=== PATIENT | female | born 1990 | race Caucasian/White ===

== ENCOUNTER 2018-03-13 01:11 | Day surgery (SDC) | payer BC ==
[2018-03-13] MEDS ORDERED: ACETAMINOPHEN 1000 MG/100 ML VIAL (NON FORMULARY) IVPB ONE (01:39)
[2018-03-13] MEDS ORDERED: SODIUM CHLORIDE 0.9% 1000 ML INFUS.BAG IV ONE ×2 (01:39→04:22)
[2018-03-13] MEDS ORDERED: morphine CARPU-JECT 4 MG/1 ML DISP.SYRIN IVPUSH ONE ×2 (01:39→04:22)
--- NOTE | 2018-03-13 01:39 | PDOC ---
History of Present Illness - General Chief Complaint: Pain, Acute Stated Complaint: ABD PAIN, N/V Time Seen by Provider: 03/13/18 01:32 - History of Present Illness Initial Comments: 03/13/18 02:34 27 years old with no significant past medical history presents emergency department with progressively worsening epigastric abdominal discomfort starting at approximately 7 PM associated with 4 episodes of vomiting. No diarrhea. No fever. Pain is severe in intensity persistent concent nonradiating with no exacerbating or alleviating factors No history of similar. No previous abdominal surgeries. Past History - Past Medical History Allergies/Adverse Reactions: Allergies Allergy/AdvReac Type Severity Reaction Status Date / Time No Known Allergies Allergy Unverified 03/13/18 01:45 Home Medications: Ambulatory Orders NK [No Known Home Medication] 03/13/18 COPD: No - Suicide/Smoking/Psychosocial Hx Smoking History: Never smoked Review of Systems - Review of Systems Comments:: 03/13/18 02:36\ ROS: A complete review of 10 out of 10 review of systems is taken and is negative apart from what is previously mentioned below and in the HPI. *Physical Exam - Vital Signs Last Vital Signs Temp Pulse Resp BP Pulse Ox 98.4 F 65 18 124/88 100 03/13/18 01:12 03/13/18 01:12 03/13/18 01:12 03/13/18 01:12 03/13/18 01:12 - Physical Exam Comments: 03/13/18 02:35 Vitals: Triage Vital signs reviewed General Appearance: no acute distress, well nourished well developed, Head: Atraumatic, Neck: Supple;No Nucal rigidity Chest Wall: Nontender Cardiac: Regular rate and rhythym, no murmurs, no rubs, no gallops, Lungs: Clear to auscultation bilateral, good air movement bilaterally, Abdomen: Soft, non distended, normal bowel sounds, right lower quadrant tenderness to palpation Genitourinary: No adnexal tenderness to palpation, no CMT (perfomed with applications sales consultant tech jerrod at bedside) Skin: Warm and dry, no rashes or lesions, no rash, no petechiae Psych: normal mood, normal affect Moderate Sedation - Procedure Monitoring Vital Signs: Procedure Monitoring Vital Signs Temperature 98.4 F 03/13/18 01:12 Pulse Rate 65 03/13/18 01:12 Respiratory Rate 18 03/13/18 01:12 Blood Pressure 124/88 03/13/18 01:12 O2 Sat by Pulse Oximetry (%) 100 03/13/18 01:12 ED Treatment Course - LABORATORY CBC & Chemistry Diagram: 03/13/18 02:10 03/13/18 02:10 Medical Decision Making - Medical Decision Making 03/13/18 04:59 27 years old past medical history presents with one-day history of epigastric and now right lower quadrant pain RLQ ttp on exam No significant adnexal tenderness on pelvic exam we'll treat with pain medications IV fluids and antiemetics labs and CT abdomen pelvis CT + for acute appendicitis Patient given Zosyn. Case discussed with surgery at 4:50 AM Will admit to hospital for appendectomy today *DC/Admit/Observation/Transfer Diagnosis at time of Disposition: Appendicitis Qualifiers: Appendicitis type: acute appendicitis Acute appendicitis type: unspecified acute appendicitis type Qualified Code(s): K35.80 - Unspecified acute appendicitis - Discharge Dispostion Condition at time of disposition: Stable Decision to Admit order: Yes - Referrals - Patient Instructions - Post Discharge Activity
[2018-03-13] MEDS ORDERED: ONDANSETRON 4 MG/2 ML VIAL IVPUSH ONE (01:51)
[2018-03-13 02:39] LABS: BASO % 0.3 % (0-2.0); EOS % 0.3 % (0-4.5); HEMATOCRIT 42.4 % (32.4-45.2); HEMOGLOBIN 14.1 GM/dL (10.7-15.3); LYMPH % 12.1 % (8-40); MCH 28.4 pg (25.7-33.7); MCHC 33.3 g/dl (32.0-36.0); MEAN CELL VOLUME 85.3 fl (80-96); NEUT % 82.3 % (42.8-82.8); PLATELET COUNT 201 K/MM3 (134-434); RBC 4.97 M/mm3 (3.60-5.2); RDW 12.1 % (11.6-15.6)
[2018-03-13 02:50] LABS: URINE APPEARANCE CLEAR; URINE BILIRUBIN NEGATIVE (<2.0 mg/dL); URINE COLOR YELLOW; URINE GLUCOSE (UA) NEGATIVE (NEGATIVE); URINE KETONE 1+ (NEGATIVE); URINE LEUK ESTERASE NEGATIVE (NEGATIVE); URINE NITRITE NEGATIVE (NEGATIVE); URINE PROTEIN NEGATIVE (NEGATIVE); URINE UROBILINOGEN NEGATIVE mg/dL (0.2-1.0)
[2018-03-13 02:52] LABS: HCG,QUALITATIVE URINE Negative
[2018-03-13 02:56] LABS: PROTHROMBIN TIME (PATIENT) 11.8 SEC (9.7-13.0)
[2018-03-13 03:25] LABS: ALBUMIN 4.2 g/dl (3.4-5.0); ALK PHOS 52 U/L (45-117); ANION GAP 14 MMOL/L (8-16); BILIRUBIN,TOTAL 0.9 mg/dL (0.2-1); BLOOD UREA NITROGEN 22 mg/dL (7-18); CALCIUM 9.6 mg/dL (8.5-10.1); CHLORIDE 102 mmol/L (98-107); CO2 23 mmol/L (21-32); GLUCOSE,RANDOM 106 mg/dL (74-106); POTASSIUM 3.5 mmol/L (3.5-5.1); SGOT/AST 19 U/L (15-37); SGPT/ALT 29 U/L (13-61); SODIUM 138 mmol/L (136-145); TOT PROT 7.3 g/dl (6.4-8.2)
[2018-03-13] MEDS ORDERED: PIPERACILLIN/TAZOB 3.375 GM 3.375 GM in DEXTROSE 5%-WATER - 50 ML IVPB ONE ×3 (04:19→18:00)
--- NOTE | 2018-03-13 05:03 | HP ---
Admitting History and Physical - Admission Chief Complaint: abdominal pain History of Present Illness: 27 yo no significant PMH presents to the emergency department with progressively worsening epigastric abdominal discomfort starting at approximately 7 PM associated with 4 episodes of vomiting. No diarrhea. No fever. Pain is severe in intensity persistent concent nonradiating with no exacerbating or alleviating factors. No history of similar. No previous abdominal surgeries. CT scan shows dilated appendix. we were called to assess. History Source: Patient, Medical Record Limitations to Obtaining History: No Limitations - Smoking History Smoking history: Never smoked Home Medications - Allergies Allergies/Adverse Reactions: Allergies Allergy/AdvReac Type Severity Reaction Status Date / Time No Known Allergies Allergy Unverified 03/13/18 01:45 - Home Medications Home Medications: Ambulatory Orders NK [No Known Home Medication] 03/13/18 Review of Systems - Review of Systems Constitutional: denies: Chills, Fever Eyes: denies: Blind Spots, Recent Change in Vision HENT: denies: Difficult Swallowing, Ocular Prosthesis Neck: denies: Pain on Movement, Swollen Glands Cardiovascular: denies: Chest Pain, Palpitations Respiratory: denies: Cough, SOB Gastrointestinal: reports: Abdominal Pain. denies: Constipation, Diarrhea Genitourinary: denies: Burning, Discharge Breasts: reports: No Symptoms Reported. denies: Pain Integumentary: denies: Blister, Lesions, Lump Neurological: denies: Syncope, Tremors, Weakness Endocrine: denies: Unexplained Weight Gain, Unexplained Weight Loss Hematology/Lymphatic: denies: Easily Bruised, Excessive Bleeding Psychiatric: denies: Anxiety, Depression Physical Examination Vital Signs: Vital Signs Temperature 98.6 F 03/13/18 04:40 Pulse Rate 70 03/13/18 04:40 Respiratory Rate 16 03/13/18 04:40 Blood Pressure 97/57 L 03/13/18 04:40 O2 Sat by Pulse Oximetry (%) 97 03/13/18 04:40 Constitutional: Yes: Well Nourished, No Distress, Calm Eyes: Yes: Conjunctiva Clear, EOM Intact HENT: Yes: Atraumatic, Normocephalic Neck: Yes: Supple, Trachea Midline Cardiovascular: Yes: Regular Rate and Rhythm, S1, S2 Respiratory: Yes: Regular, CTA Bilaterally Gastrointestinal: Yes: Normal Bowel Sounds, Soft ...Rectal Exam: Yes: Deferred Renal/: No: CVA Tenderness - Left, CVA Tenderness - Right Musculoskeletal: No: Muscle Pain, Muscle Weakness Extremities: No: Cool, Cyanosis Edema: No Peripheral Pulses WNL: Yes Peripheral Pulses: Left Radial: 2+, Right Radial: 2+, Left Doralis Pedis: 2+, Right Dorsalis Pedis: 2+, Left Femoral: 2+, Right Femoral: 2+ Integumentary: No: Incision, Jaundice Neurological: Yes: Alert, Oriented Psychiatric: Yes: Alert, Oriented Labs: CBC, BMP 03/13/18 02:10 03/13/18 02:10 Imaging - Results Cat Scan: Report Reviewed, Image Reviewed (inclamed appendix RLQ) Problem List - Problems (1) Acute appendicitis with localized peritonitis Assessment/Plan: 27yo female with appendicitis with localized peritonitis NPO and IVF hydration IV antibiotics OR for Lap Appendectomy Discussed with patient risks, benefits and alternatives of laparoscopic possible open appendectomy, including but not limited to bleeding, infection, injury to adjacent structures, leak or injury, intraabdominal abscess, incisional hernia, need for further procedures, ; alternatives include antibiotics, delayed or no surgery - risks of this include failure of nonoperative therapy, perforation, sepsis, recurrence, . Patient desires to proceed with operation - will take to OR for above. Informed consent signed for same. Code(s): K35.30 - ACUTE APPENDICITIS WITH LOC PERITONITIS, W/O PERF OR GANGR Qualifiers: Appendicitis gangrene presence: without gangrene Appendicitis perforation presence: without perforation Appendicitis abscess presence: without abscess Qualified Code(s): K35.30 - Acute appendicitis with localized peritonitis, without perforation or gangrene (2) Abdominal pain in female Code(s): R10.9 - UNSPECIFIED ABDOMINAL PAIN (3) Leukocytosis Code(s): D72.829 - ELEVATED WHITE BLOOD CELL COUNT, UNSPECIFIED Qualifiers: Leukocytosis type: bandemia Qualified Code(s): D72.825 - Bandemia (4) Appendicitis Code(s): K37 - UNSPECIFIED APPENDICITIS Qualifiers: Appendicitis type: acute appendicitis Acute appendicitis type: unspecified acute appendicitis type Qualified Code(s): K35.80 - Unspecified acute appendicitis (5) Dehydration Code(s): E86.0 - DEHYDRATION
[2018-03-13 05:52] VITALS: BMI 24.7
[2018-03-13] MEDS ORDERED: morphine CARPU-JECT 4 MG/1 ML DISP.SYRIN IVPUSH PRN (05:56)
[2018-03-13] MEDS ORDERED: ONDANSETRON 4 MG/2 ML VIAL IVPUSH PRN ×3 (05:56→11:49)
[2018-03-13] MEDS ORDERED: LACTATED RINGERS SOLUTION 1,000 ML IV SCH (05:56)
[2018-03-13] MEDS ORDERED: morphine SULFATE 4 MG/ML VIAL IVPUSH PRN (07:34)
[2018-03-13] MEDS ORDERED: SUCCINYLCHOLINE CHLORIDE 200 MG/10 ML VIAL ONE (09:37)
[2018-03-13] MEDS ORDERED: ROCURONIUM BROMIDE 50 MG/5 ML VIAL ONE (09:37)
[2018-03-13] MEDS ORDERED: MIDAZOLAM HCL 2 MG/2 ML SINGLE DOSE VIAL ONE (09:37)
[2018-03-13] MEDS ORDERED: PROPOFOL 20 ML ONE ×2 (09:37)
--- NOTE | 2018-03-13 09:43 | OP ---
Operative Note - Note: Operative Date: 03/13/18 Pre-Operative Diagnosis: acute appendicitis with localized peritonitis Operation: Laparoscopic appeneectomy Findings: inflamed appendix Post-Operative Diagnosis: Same as Pre-op Surgeon: Tyrone Desouza Anesthesiologist/FRONT END MECHANIC: Michael Jaimes Anesthesia: General, Local Specimens Removed: appendix Estimated Blood Loss (mls): 2 Fluid Volume Replaced (mls): 600 Operative Report Dictated: Yes
[2018-03-13] MEDS ORDERED: BUPIVACAINE HCL/PF 0.5% (5MG/ML) 10 ML VIAL ONE (10:03)
[2018-03-13] MEDS ORDERED: NEOSTIGMINE METHYLSULFATE 0.5 MG/ML - 10 ML MDV ONE (10:29)
[2018-03-13] MEDS ORDERED: BUPIVACAINE HCL/PF 0.5% (5MG/ML) 10 ML VIAL IJ ONE (10:32)
--- NOTE | 2018-03-13 10:50 | DS ---
Physical Examination Vital Signs: Vital Signs Temperature 98.5 F 03/13/18 05:56 Pulse Rate 61 03/13/18 05:56 Respiratory Rate 18 03/13/18 08:37 Blood Pressure 132/73 03/13/18 05:56 O2 Sat by Pulse Oximetry (%) 98 03/13/18 08:37 Constitutional: Yes: Well Nourished, No Distress, Calm Eyes: Yes: Conjunctiva Clear, EOM Intact HENT: Yes: Atraumatic, Normocephalic Neck: Yes: Supple, Trachea Midline Cardiovascular: Yes: Regular Rate and Rhythm, S1, S2 Respiratory: Yes: Regular, CTA Bilaterally Gastrointestinal: Yes: Normal Bowel Sounds, Soft, Tenderness (incisional) ...Rectal Exam: Yes: Deferred Renal/: No: CVA Tenderness - Left, CVA Tenderness - Right Musculoskeletal: No: Muscle Pain, Muscle Weakness Extremities: No: Cool, Cyanosis Edema: No Peripheral Pulses WNL: Yes Peripheral Pulses: Left Radial: 2+, Right Radial: 2+, Left Doralis Pedis: 2+, Right Dorsalis Pedis: 2+, Left Femoral: 2+, Right Femoral: 2+ Integumentary: Yes: Incision Wound/Incision: Yes: Clean/Dry, Well Approximated, Sutures Intact. No: Draining , Reddened Neurological: Yes: Alert, Oriented Psychiatric: Yes: Alert, Oriented Labs: CBC, BMP 03/13/18 02:10 03/13/18 02:10 Discharge Summary Reason For Visit: APPENDICITIS Current Active Problems Abdominal pain in female (Acute) Acute appendicitis with localized peritonitis (Acute) Appendicitis (Acute) Dehydration (Acute) Leukocytosis (Acute) Procedures: Principal: Laparoscopic appendectomy Hospital Course: admitted for an emergency procedure, uneventful procedure, stable for discharge home Condition: Improved - Instructions Diet, Activity, Other Instructions: Postoperative instructions: You had a laparoscopic ectomy on 01/11/[address] Tyrone Desouza of [facility]. Activity: Resume your usual activities gradually, but no heavy exertion or lifting more than 10-15 pounds for 1 month. Remove dressings 48 hours after surgery; sticky tapes underneath will fall off by themselves. You may shower daily starting then, just pat the incision areas dry. No bath or swimming until skin incisions have healed. Eat lightly at first, but advance to your usual diet as tolerated. Pain: For pain, you may use and alternate Tylenol (acetaminophen) 1-2 pills and/ or ibuprofen 200 mg (1-3 pills) every 6 hours each as needed; this means that you can take one OR the other at 3-hour intervals. If you are prescribed a Tylenol/narcotic combination for severe pain, use it instead of plain Tylenol as needed and switch back when your pain starts decreasing. Do not take more than 4000mg of acetaminophen in a day. Take medications as prescribed or indicated on the labeling. Follow-up: Call Dr. Desouza office at [phone] to make your postop appointment (Tuesday in approximately 2 weeks after surgery). Clinic is held in the [facility] on the first floor of [facility]. Call the office if you have: * increasing pain not responsive to pain medication * fever of 101F or higher * vomiting * unusual or increasing bleeding or drainage from wounds * increasing redness or swelling at wound sites * inability to urinate Also, see your primary medical doctor within 1-2 weeks. Referrals: Saskia Livingston [Primary Care Provider] - Disposition: HOME - Home Medications Comprehensive Discharge Medication List: Ambulatory Orders Amox-Tr/K Cl [Augmentin - 875Mg Tablet] 1 tab PO BID #14 tablet 03/13/18 Oxycodone HCl/Acetaminophen [Percocet 5/325 -] 1 tab PO Q6H 5 Days #40 tab MDD 4 03/13/18
[2018-03-13] MEDS ORDERED: PROMETHAZINE HCL 25 MG/1 ML VIAL IVPUSH PRN ×2 (11:13→11:49)
[2018-03-13] MEDS ORDERED: oxyCODONE HCL 5 MG TABLET PO PRN ×4 (11:13→11:49)
[2018-03-13 14:40] VITALS: BP 106/52; PULSE 64; TEMP 99
--- NOTE | 2018-03-13 18:49 | OP ---
DATE OF OPERATION: 03/13/2018 PREOPERATIVE DIAGNOSIS: Acute appendicitis with localized peritonitis. POSTOPERATIVE DIAGNOSIS: Acute appendicitis with localized peritonitis. PROCEDURE: Laparoscopic appendectomy. ATTENDING SURGEON: Tyrone Desouza M.D. SLIP FEEDER: None. ANESTHESIOLOGIST: Michael Jaimes CRNA ANESTHESIA: General with local. Local consisted of 0.5% Marcaine a total of 10 mL given in the area block fashion at the port site. SPECIMEN: Appendix. ESTIMATED BLOOD LOSS: 2 mL INTRAVENOUS FLUID ADMINISTERED: 600 mL DURATION OF CASE: 24 minutes. INDICATION: Patient is presenting with a history of acute appendicitis, 1 day of abdominal pain localized to the right lower quadrant, leukocytosis at 18,000. She was counseled regarding need for acute appendicitis after confirmed on CAT scan. Laparoscopic appendectomy confirmed on CAT scan. She signed informed consent after being explained the risks, benefits, and alternatives. She was taken for procedure. DESCRIPTION OF PROCEDURE: Patient was brought to the operating room, placed in supine position on the operating room table. Lower extremity SCDs placed. She was induced under general anesthesia, endotracheally intubated. She received Zosyn intravenously prior to surgery. After a formal timeout was completed identifying the operative site and procedure with the anterior abdominal wall prepped and draped in standard surgical fashion, we began first with an infraumbilical approach. A Veress needle after a gisele on the skin was made with an 11 blade, and the abdominal wall was elevated, was inserted into the abdomen and confirmed for position, and then the pneumoperitoneum was established to 15 mmHg. We began first then with replacement of the Veress needle with a 5-mm trocar. This trocar was installed in the abdomen and pneumoperitoneum was reestablished. After completion of this, this was done under direct visualization with the Visiport. The obturator was then removed and the abdomen was inspected for trauma, and there appears to be none. The patient was placed into a steep Trendelenburg with rotation toward the left side down and lateral decubitus. We began first with inspection of the right lower quadrant and insufflation of the additional 5-mm trocar at the suprapubic position 2 fingerbreadths, and at the anterior superior iliac spine, an additional 12-mm trocar was installed. This was done under direct visualization. We then began with exploration of the abdomen. The uterus appeared normal. Liver also appeared normal, it was visualized. The cecum, once swept, revealed an inflamed appendix which was grasped in the mid body. A plane was then developed at the base of the appendix. After clearing the base of the appendix, we began first with a multifire EndoGIA 30 mm to transect the base. It was installed through the 12-mm port in the left lower quadrant. The base was then controlled and transected with roxie. We then proceeded with the remainder of the dissection of the mesoappendix and arterial appendiceal artery with the LigaSure device. Once complete, the appendix was then retrieved from the abdomen using a 10-mm EndoCatch bag. The remainder of the abdomen was clear of any purulent discharge and was inspected one final time. Trocars were removed under direct visualization, and then the appendix was removed with the EndoCatch bag. We proceeded then with release of the pneumoperitoneum and closure of the sites. The port sites were closed after inoculation with 10 mL of 0.5% Marcaine at the port sites, they were controlled for hemostasis using Bovie cautery and then closed with 4-0 Vicryl in a running subcuticular fashion. The skin was cleaned, sterile dressings were placed composed of Dermabond. Patient was awoken from general anesthesia having tolerated procedure well. She was given instructions to follow up in a period of 2 weeks. She was stable throughout. Counts were correct pre- and postoperatively. MD CHRISTY Hollingsworth/[id number]
--- NOTE | 2018-03-16 12:05 | PATH ---
Surgical Pathology Report Patient Name: TED BEAVER Med. Rec. #: [id number] /Age/Gender: 1990 (Age: 27) / F Account: [id number] Location: [facility] Taken: 03/13/2018 Received: 03/13/2018 Reported: 03/16/2018 Physicians: Tyrone Desouza M.D. Specimen(s) Received APPENDIX Clinical History Appendicitis Final Diagnosis APPENDIX, APPENDECTOMY: ACUTE APPENDICITIS AND PERIAPPENDICITIS. Electronically Signed Kimberlyn Perez M.D. Gross Description Received in formalin, labeled "appendix," is a 6.5 cm. in length vermiform appendix with a stapled margin of resection and moderate attached fat. The serosa is wright-pink with focal attached exudate. Sectioning reveals a dilated lumen containing blood and pus. The wall of the appendix averages 0.1 cm. in thickness. Certified Hyperbaric Technologist sections are submitted in one cassette. 03/13/2018 saudi03/13/2018
== END 2018-03-13 16:20 | disposition home or self-care (01) ==
LOC: FASUSAT 01:11 → FER 01:11 → UNDOADMIN 05:11 → FM/S 05:11 → FASUSAT 11:48
PROC: 0DTJ4ZZ Resection of Appendix, Percutaneous Endoscopic Approach (ICD-10-PCS; principal; 2018-03-13 10:20)
DX: K35.30 Acute appendicitis with localized peritonitis, without perforation or gangrene (principal); D72.829 Elevated white blood cell count, unspecified; E86.0 Dehydration
CPT/HCPCS: 36415; 74176-TC; 80053; 81003; 83690; 84702; 84703; 85025; 85610; 85730; 86850; 86900; 86901; 87086; 88304-TC; 94760; 99283-25; J0131; J7030